=== PATIENT | female | born 1990 | race Two or more races ===

== ENCOUNTER 2023-03-24 00:44 | Inpatient (IN) | payer MEDICAID, OTHER ==
[~2023-03-24] VITALS: Ht 167.6 cm; Wt 98.0 kg
[2023-03-24] MEDS ORDERED: SODIUM CHLORIDE 0.9% 1,000 ML IV ONE (01:15)
[2023-03-24] MEDS ORDERED: cefTRIAXone 1GM/50ML D5W 50 ML IV ONE (01:15)
[2023-03-24] MEDS ORDERED: CLINDAMYCIN 600MG IV 50 ML IV ONE (01:15)
[2023-03-24 01:35] LABS: Basophils # (auto) 0.1 10 ^3/uL (0-0.2); Basophils % (auto) 0.6 % (0.0-2.0); Eosinophils # (auto) 0.4 10 ^3/uL (0-0.8); Eosinophils % (auto) 4.6 % (0.0-7.0); Hematocrit 40.3 % (36.0-46.0); Lymphocytes # (auto) 1.7 10 ^3/uL (0.4-5.4); Lymphocytes % (auto) 18.9 % (10.0-50.0); Mean Corpuscular Hgb Conc. 32.4 g/dL (32.0-36.0); Mean Corpuscular Volume 83.3 fL (80.0-100.0); Monocytes # (auto) 0.7 10 ^3/uL (0-1.3); Monocytes % (auto) 7.1 % (0.0-12.0); Neutrophils # (auto) 6.3 10 ^3/uL (1.6-8.6); Neutrophils % (auto) 68.8 % (37.0-80.0); Red Blood Cells 4.83 10^6/uL (4.0-5.20); Red Cell Distribution Width 13.4 % (11.8-14.3); White Blood Cell 9.2 10^3/uL (4.4-10.8)
[2023-03-24 01:51] LABS: Alanine Aminotransferase 12 U/L (7-40); Albumin 4.5 g/dL (3.2-4.8); Alkaline Phosphatase 90 U/L (46-116); Anion Gap 6 (5-15); Aspartate Aminotransferase 10 U/L (13-40); Bilirubin, Total 0.4 mg/dL (0.2-1.0); Calcium 8.6 mg/dL (8.7-10.4); Carbon Dioxide 25 mmol/L (20-30); Chloride 106 mmol/L (98-107); Glucose 108 mg/dL (74-106); Potassium 3.3 mmol/L (3.5-5.1); Sodium 137 mmol/L (136-145); Total Protein 7.2 g/dL (5.7-8.2)
[2023-03-24 01:57] LABS: BUN/Creatinine Ratio 7.4 (10.0-20.0); Blood Urea Nitrogen < 5 mg/dL (9-23)
[2023-03-24 02:11] LABS: INR 1.11 (0.9-1.15); Partial Thromboplastin Time 29.2 SEC (24.5-34.5); Prothrombin Time 11.6 sec (9.3-11.8)
[2023-03-24] MEDS ORDERED: ACETAMINOPHEN 325 MG TAB PO PRN (06:45)
[2023-03-24] MEDS ORDERED: ALBUTEROL SULF 2.5 MG/0.5ML(0.5%) NEB SOLN NEB PRN (06:45)
[2023-03-24] MEDS ORDERED: POTASSIUM CHL 20 Meq TABLET PO ONE (06:45)
[2023-03-24] MEDS ORDERED: TEMAZEPAM 15 MG CAP PO PRN (06:45)
[2023-03-24] MEDS ORDERED: ONDANSETRON HCL 4 MG/2 ML VIAL IV PRN (06:45)
[2023-03-24 07:00] VITALS: BP 123/73; PULSE 95; RESP 18; TEMP 99.3; O2SAT 98
[2023-03-24] MEDS: cefTRIAXone 1GM/50ML D5W 50 ML IV SCH (07:47)
[2023-03-24] MEDS: HYDROcodone-ACET 5/325MG TAB PO PRN ×3 (07:47→21:04)
[2023-03-24 07:52] VITALS: PULSE 109; RESP 18; O2SAT 98
[2023-03-24 08:55] VITALS: RESP 18; O2SAT 98
[2023-03-24] MEDS: CLINDAMYCIN 600MG IV 50 ML IV SCH ×2 (14:00→21:04)
[2023-03-24 17:00] VITALS: BP 123/81; PULSE 80; RESP 20; TEMP 97.9; O2SAT 100
[2023-03-24 20:38] VITALS: O2SAT 100
[2023-03-24 22:00] VITALS: BP 97/58; PULSE 68; RESP 18; TEMP 98.8; O2SAT 95
[2023-03-25] VITALS (8 sets, daily range): BP systolic 117–147; BP diastolic 74–93; PULSE 66–105; RESP 16–18; TEMP 97.8–98.9; O2SAT 94–100
[2023-03-25] MEDS: CLINDAMYCIN 600MG IV 50 ML IV SCH ×2 (05:48→20:33)
[2023-03-25 06:22] LABS: Basophils # (auto) 0 10 ^3/uL (0-0.2); Basophils % (auto) 0.5 % (0.0-2.0); Eosinophils # (auto) 0.5 10 ^3/uL (0-0.8); Eosinophils % (auto) 7.8 % (0.0-7.0); Hematocrit 37.4 % (36.0-46.0); Hemoglobin 12.2 g/dL (12.2-16.2); Lymphocytes % (auto) 28.6 % (10.0-50.0); Mean Corpuscular Hemoglobin 27.4 pg (28.0-32.0); Mean Corpuscular Hgb Conc. 32.6 g/dL (32.0-36.0); Mean Corpuscular Volume 84.1 fL (80.0-100.0); Monocytes # (auto) 0.7 10 ^3/uL (0-1.3); Monocytes % (auto) 9.9 % (0.0-12.0); Neutrophils # (auto) 3.7 10 ^3/uL (1.6-8.6); Neutrophils % (auto) 53.2 % (37.0-80.0); Nucleated Red Blood Cells % 0.2 %; Red Blood Cells 4.44 10^6/uL (4.0-5.20); Red Cell Distribution Width 13.6 % (11.8-14.3); White Blood Cell 6.9 10^3/uL (4.4-10.8)
[2023-03-25 06:24] LABS: Chloride 108 mmol/L (98-107)
[2023-03-25 06:25] LABS: Anion Gap 8 (5-15); Carbon Dioxide 22 mmol/L (20-30); Potassium 3.9 mmol/L (3.5-5.1); Sodium 138 mmol/L (136-145)
[2023-03-25 06:26] LABS: Calcium 8.7 mg/dL (8.5-10.1)
[2023-03-25 06:31] LABS: Glucose 86 mg/dL (74-106)
[2023-03-25 07:01] LABS: BUN/Creatinine Ratio 7.6 (10.0-20.0); Blood Urea Nitrogen < 5 mg/dL (9-23)
[2023-03-25] MEDS: cefTRIAXone 1GM/50ML D5W 50 ML IV SCH (08:55)
[2023-03-25] MEDS: HYDROcodone-ACET 5/325MG TAB PO PRN ×2 (08:55→20:33)
[2023-03-25 09:24] LABS: Urine Bacteria FEW /hpf (None Seen); Urine Blood Negative /uL (Negative); Urine Clarity Clear (Clear); Urine Color Yellow (Yellow); Urine Protein, UAD Negative (Negative); Urine Specific Gravity 1.012 (1.001-1.035); Urine Urobilinogen Normal (Negative); Urine WBC 1 /hpf (0 - 5)
[2023-03-25] MEDS: FLORASTOR (S. BOULARDII) 250 MG CAP PO SCH (11:00)
[2023-03-25] MEDS ORDERED: VANCOMYCIN PER PHARMACY 0 MG IV SCH (12:30)
[2023-03-25] MEDS ORDERED: VANCOMYCIN 1GM/200ML 200 ML IV ONE (13:00)
[2023-03-25] MEDS ORDERED: FAMOTIDINE INJECTION 40 MG in SODIUM CHL 0.9% 100 ML IV ONE (15:15)
[2023-03-25] MEDS ORDERED: diphenhdrAMINE HCL 50 MG/1 ML VL IV ONE (15:15)
[2023-03-25] MEDS ORDERED: methylPREDNISolone SOD SUCC 125 MG/2 ML VL IV ONE (15:15)
[2023-03-25] MEDS ORDERED: ACETAMINOPHEN 325 MG TAB PO ONE (15:15)
[2023-03-26] VITALS (8 sets, daily range): BP systolic 107–123; BP diastolic 63–81; PULSE 77–86; RESP 16–20; TEMP 97.7–98.3; O2SAT 95–98
[2023-03-26] MEDS ORDERED: VANCOMYCIN 1GM/200ML 200 ML IV SCH
[2023-03-26] MEDS: CLINDAMYCIN 600MG IV 50 ML IV SCH ×3 (05:13→21:10)
[2023-03-26] MEDS: FLORASTOR (S. BOULARDII) 250 MG CAP PO SCH (08:55)
[2023-03-26] MEDS: cefTRIAXone 1GM/50ML D5W 50 ML IV SCH (08:55)
[2023-03-26] MEDS: HYDROcodone-ACET 5/325MG TAB PO PRN (11:45)
[2023-03-27 05:00] VITALS: BP 122/66; PULSE 85; RESP 17; TEMP 98.3; O2SAT 94
[2023-03-27] MEDS: CLINDAMYCIN 600MG IV 50 ML IV SCH (06:01)
[2023-03-27 08:00] VITALS: PULSE 86; RESP 18; O2SAT 97
[2023-03-27 09:00] VITALS: BP 116/79; PULSE 82; RESP 20; TEMP 98; O2SAT 96
[2023-03-27] MEDS: HYDROcodone-ACET 5/325MG TAB PO PRN (09:32)
[2023-03-27] MEDS: cefTRIAXone 1GM/50ML D5W 50 ML IV SCH (09:34)
[2023-03-27] MEDS: FLORASTOR (S. BOULARDII) 250 MG CAP PO SCH (09:36)
[2023-03-27] MEDS ORDERED: CLIN300C70 PO ×2 (09:59)
[2023-03-27] MEDS ORDERED: SACC1CAP3 PO (09:59)
[2023-03-27 11:23] VITALS: BP 116/79; PULSE 98; RESP 20; TEMP 36.7; O2SAT 96
[2023-03-27 13:00] VITALS: BP 118/81; PULSE 88; RESP 21; TEMP 98; O2SAT 95
[2023-03-27] MEDS ORDERED: BACDST PO (13:25)
[2023-03-27] MEDS ORDERED: DOXYCYCLINE 100 MG TAB/CAP PO SCH (14:00)
== END 2023-03-27 14:04 | disposition home or self-care (01) | DRG 383 ==
LOC: ER 00:44 → OVERFLOW 06:40 → CENTRAL 14:43
PROVIDERS: ADMIT Nurse Practitioner; ATTEND Nurse Practitioner Acute Care
DX: L03.116 Cellulitis of left lower limb (principal); E66.9 Obesity, unspecified; E87.6 Hypokalemia; J45.909 Unspecified asthma, uncomplicated; Z86.14 Personal history of Methicillin resistant Staphylococcus aureus infection; L02.416 Cutaneous abscess of left lower limb; Z68.34 Body mass index [BMI] 34.0-34.9, adult
CPT/HCPCS: 36415; 73700; 80048; 80053; 81001; 83605; 84702; 85025; 85610; 85730; 87040; 87077; 87186; 87205; 96365; 96366; 96368; G0378; J3490

== ENCOUNTER 2023-04-11 13:23 | Emergency (ER) | payer MEDICAID ==
[~2023-04-11] VITALS: Ht 167.6 cm; Wt 88.7 kg
[~2023-04-11 13:23] MED LIST: BACDST PO; SACC1CAP3 PO
[2023-04-11] MEDS ORDERED: ACETAMINOPHEN 500 MG TAB PO ONE (14:00)
[2023-04-11] MEDS ORDERED: IPRATROPIUM BROM 0.5 MG/2.5ML INH SOL NEB ONE (14:00)
[2023-04-11] MEDS ORDERED: ALBUTEROL SULF 2.5 MG/0.5ML(0.5%) NEB SOLN NEB ONE (14:00)
[2023-04-11] MEDS ORDERED: IBUPROFEN 800 MG TAB PO ONE (16:15)
[2023-04-11] MEDS ORDERED: DexAMETHasone SOD PHOS 10MG/1ML VIAL INJ IM ONE (16:15)
[2023-04-11 17:10] LABS: COVID19 ANTIGEN SOFIA FIA NEGATIVE (NEGATIVE)
[2023-04-11 17:13] LABS: Rapid Influenza A Negative (Negative); Rapid Influenza B Negative (Negative)
[2023-04-11] MEDS ORDERED: ALBU108A5 IN (17:21)
[2023-04-11] MEDS ORDERED: METH4PAK PO (17:21)
[2023-04-11 17:33] VITALS: BP 125/73; PULSE 101; RESP 18; TEMP 99.2; O2SAT 96
== END 2023-04-11 17:34 | disposition home or self-care (01) ==
LOC: ER 13:23
DX: J45.901 Unspecified asthma with (acute) exacerbation (principal); Z20.822 Contact with and (suspected) exposure to COVID-19
CPT/HCPCS: 36415; 87426; 87804; 94640; 96372; 99283; J1100; J7644

== ENCOUNTER 2024-11-21 03:35 | Emergency (ER) | payer MEDICAID ==
[~2024-11-21] VITALS: Ht 167.6 cm; Wt 88.9 kg
[~2024-11-21 03:35] MED LIST changes: +ALBU108A5 IN; +METH4PAK PO
[2024-11-21 04:01] VITALS: BP 146/94; PULSE 89; RESP 16; TEMP 98.7; O2SAT 94
[2024-11-21] MEDS ORDERED: ERY05OO OP (04:09)
--- NOTE | 2024-11-21 04:10 | ED.PDOC ---
Eye-HPI HPI Comments 33 year old female presents to ER with right eye complaint x 1 hour. Patient reports she started experiencing redness, white drainage, blurred vision and 5/10 itchy/burning pain to right eye 1 hour prior to arrival to ER while she was around her nieces cat. States she used "OTC allergy eye drops" without relief. Patient presents to ER ambulatory on arrival, with steady gait in no distress. Denies use of contacts, headache, double vision, known foreign body going into eye or any further symptoms/complaints Chief Complaint: Eye Problem Time Seen by MD: 03:44 Primary Care Provider: UNKNOWN Reviewed Notes: Nurses Notes, Medications, Allergies Allergies: Coded Allergies: Vancomycin (Verified Allergy, Unknown, redness and itching, 03/25/23) Home Meds Active Scripts Erythromycin (Erythromycin) 5 Mg/Gm Oin, 1 MG OP 6XD for 7 Days, #1 OIN 0 Refills Prov:DIAMOND MACARIO 11/21/24 Methylprednisolone (Medrol Dosepak) 4 Mg Shane, 4 MG PO UD, #21 TAB 0 Refills UAD Prov:BRISSA IZQUIERDO SENIOR EXECUTIVE COMPENSATION ANALYST 04/11/23 Albuterol Sulfate (Albuterol Sulfate Hfa) 108 Mcg/Act Aer, 108 MCG IN Q6HP PRN for 30 Days, #1 AER 0 Refills Prov:BRISSA IZQUIERDO NP 04/11/23 Sulfamethoxazole W/Trimethopri (Bactrim Ds Tablet) 1 Tab Tb, 1 TAB PO BID for 7 Days, #14 TAB Prov:MIKA MONTOYA SENIOR EXECUTIVE COMPENSATION ANALYST 03/27/23 Yeast (S. Boulardii)(S. Cerevi (Probiotic) 250 Mg Cap, 250 MG PO DAILY for 30 Days, #30 CAP Prov:MKIA MONTOYA SENIOR EXECUTIVE COMPENSATION ANALYST 03/27/23 Information Source: Patient Mode of Arrival: Ambulatory Past Medical History PAST MEDICAL HISTORY: Asthma Surgical History: Denies all surgeries CONTENT ARCHITECT History: No Pertinent CONTENT ARCHITECT History Family History Family History: Unknown Social History Smoker: Non-Smoker Alcohol: Denies ETOH Use Drugs: Denies Drug Use Lives In: Home Constitutional: denies: chills, diaphoresis, fatigue, fever, malaise, sweats, weakness, others EENTM: reports: others (As stated in HPI) Respiratory: denies: cough, hemoptysis, orthopnea, SOB at rest, shortness of breath, SOB with excertion, stridor, wheezing, others Cardiovascular: denies: chest pain, dizzy spells, diaphoresis, Dyspnea on exertion, edema, irregular heart beat, left arm pain, lightheadedness, palpitations, PND, syncope, others Gastrointestinal: denies: abdomen distended, abdominal pain, blood streaked bowels, constipated, diarrhea, dysphagia, difficulty swallowing, hematemesis, melena, nausea, poor appetite, poor fluid intake, rectal bleeding, rectal pain, vomiting, others Genitourinary: denies: abnormal vagina bleeding, burning, dyspareunia, dysuria, flank pain, frequency, hematuria, incontinence, pain, , vagina discharge, urgency, others Neurological: denies: dizziness, fainting, headache, left sided numbness, left sided weakness, numbness, paresthesia, pre-existing deficit, right sided numbness, right sided weakness, seizure, speech problems, tingling, tremors, weakness, others Musculoskeletal: denies: back pain, gout, joint pain, joint swelling, muscle pain, muscle stiffness, neck pain, others Integumetry: denies: bruises, change in color, change in hair/nails, dryness, laceration, lesions, lumps, rash, wounds, others Allergic/Immunocompromised: denies: Difficulty Healing, Frequent Infections, Hives, Itching, others Hematologic/Lymphatic: denies: anemia, blood clots, easy bleeding, easy bruising, swollen glands, others Endocrine: denies: excessive hunger, excessive sweating, excessive thirst, excessive urination, flushing, intolerance to cold, intolerance to heat, unexplained weight gain, unexplained weight loss, others Psychiatric: denies: anxiety, bipolar disorder, depression, hopeless, panic disorder, schizophrenia, sleepless, suicidal, others Physical Exam General Appearance: No Apparent Distress, Obese HEENT: PERRL/EOMI, Pharynx Normal, TMs Normal, Other (Wood's lamp examination right eye-subconjunctival injection and minimal white drainage noted, no foreign body/corneal abrasion/corneal ulceration noted. Visual acuity right eye- 20/25, visual acuity left eye-20/20, visual acuity using both eyes- 20/20) Neck: Full Range of Motion, Non-Tender, Normal Respiratory: Chest Non-Tender, Lungs Clear, No Accessory Muscle Use, No Respiratory Distress, Normal Breath Sounds Cardiovascular: No Murmur, No Gallop, Regular Rate/Rhythm Breast Exam: Deferred Gastrointestinal: NOT DONE Genitalia: Deferred Pelvic: Deferred Rectal: Deferred Extremities: Normal capillary refill, Normal range of motion Neurologic: Alert, No Motor Deficits, Normal Affect, Normal Mood, No Sensory Deficits Cerebellar Function: Normal Reflexes: Normal Skin: Dry, Normal Color, Warm Lymphatic: No Adenopathy Was a procedure done? Was a procedure done?: No Sedation Sedation?: No EENT DIFF Eye: Corneal Abrasion, Foreign Body-Corneal, Orbital Cellulits, Periorbital Cellulits X-Ray, Labs, Meds, VS Vital Signs Date Time Temp Pulse Resp B/P (MAP) Pulse Ox O2 Delivery O2 Flow Rate FiO2 11/21/24 04:01 98.7 89 16 146/94 (111) 94 98.7 11/21/24 04:01 89 16 94 Room Air 11/21/24 03:37 98.7 89 16 146/94 94 98.7 Tetracaine ophthalmic ordered Fluorescein stain ophthalmic ordered Erythromycin ointment ordered Advised to follow up with PCP and ophthalmology in 1-2 days Patient verbalized understanding and agreeable with current plan of care Advised to return to ER immediately if symptoms worsen Time of 1ST Reevaluation: 03:44 Reevaluation 1ST: N/A Patient Education/Counseling: Diagnosis, Treatment, Prognosis, Need For Follow Up Family Education/Counseling: No Family Present SEPSIS Sepsis Screen Date sepsis recognized/suspect: Nov 21, 2024 Time Sepsis recognized/suspect: 0341 Recent Procedure: No On Antibiotic Therapy: No Respiratory Rate >20: No Heart Rate >90: No Temp<36 C (96.8 F) or >38.3 C: No SBP <90 or MAP <65 mmHG: No New Acute Mental Status Change: No Is the patient on CPAP, BIPAP,: No Vital Signs Date Time Temp Pulse Resp B/P (MAP) Pulse Ox O2 Delivery O2 Flow Rate FiO2 11/21/24 04:01 98.7 89 16 146/94 (111) 94 98.7 11/21/24 04:01 89 16 94 Room Air 11/21/24 03:37 98.7 89 16 146/94 94 98.7 Departure 1 Departure Time of Disposition: 04:08 Impression: Primary Impression: Bacterial conjunctivitis of right eye Disposition: HOME / SELF CARE / HOMELESS Condition: Stable e-Prescriptions Erythromycin (Erythromycin) 5 Mg/Gm Oin 1 MG OP 6XD for 7 Days, #1 OIN 0 Refills Prov: DIAMOND MACARIO 11/21/24 Discharged With: Friend Critical Care Note Critical Care Time?: No Stability Stability form required: No Heart Score Heart Score: Heart Score Response (Comments) Value History N/A 0 EKG N/A 0 Age N/A 0 Risk Factors N/A 0 Troponin N/A 0 Total 0 DIAMOND MACARIO Nov 21, 2024 04:10
[2024-11-21] MEDS: TETRACAINE HCL 0.5% OPTH(EYE) SOLN 4ML RIGHTEYE ONE (04:24)
[2024-11-21] MEDS: ERYTHROMY OPTH OINT 5mg/gm 1gm or 3.5gm tube OP ONE (04:24)
[2024-11-21] MEDS: FLUORESCEIN SOD OPTH TEST STRIP RIGHTEYE ONE (04:24)
== END 2024-11-21 04:28 | disposition home or self-care (01) ==
LOC: ER 03:35
DX: H10.89 Other conjunctivitis (principal); H57.11 Ocular pain, right eye; J45.909 Unspecified asthma, uncomplicated; Z79.899 Other long term (current) drug therapy; Z88.1 Allergy status to other antibiotic agents

== ENCOUNTER 2024-12-14 21:29 | Emergency (ER) | payer MEDICAID ==
[~2024-12-14] VITALS: Ht 167.6 cm; Wt 88.3 kg
[~2024-12-14 21:29] MED LIST changes: +ERY05OO OP
[2024-12-14 23:22] VITALS: BP 125/77; PULSE 88; RESP 18; TEMP 98.9; O2SAT 95
--- NOTE | 2024-12-14 23:28 | ED.PDOC ---
Eye-HPI HPI Comments Pt presents with right side tooth pain x2 days. Pt says she broke right side tooth on bottom near back of mouth. Pt says pain got worse today with swelling. Rates pain 11/04, has taken tylenol for pain without relief. Has not seen dentist yet. Denies fevers, n/v, swallowing throat swelling or difficulty breathing. Chief Complaint: Tooth Pain Time Seen by MD: 21:33 Primary Care Provider: UNKNOWN Reviewed Notes: Nurses Notes, Medications, Allergies Allergies: Coded Allergies: Vancomycin (Verified Allergy, Unknown, redness and itching, 03/25/23) Home Meds Active Scripts Ibuprofen (Ibuprofen) 800 Mg Tab, 800 MG PO Q8HP PRN for 5 Days, #15 TAB Prov:BAKARI CAMACHO 12/14/24 Clindamycin Hcl (Clindamycin Hcl) 300 Mg Cap, 300 MG PO QID, #7 CAP 28 Refills Prov:BAKARI CAMACHO 12/14/24 Erythromycin (Erythromycin) 5 Mg/Gm Oin, 1 MG OP 6XD for 7 Days, #1 OIN 0 Refills Prov:DIAMOND MACARIO 11/21/24 Methylprednisolone (Medrol Dosepak) 4 Mg Shane, 4 MG PO UD, #21 TAB 0 Refills UAD Prov:BRISSA IZQUIERDO FOOD AND BEVERAGE CASHIER 04/11/23 Albuterol Sulfate (Albuterol Sulfate Hfa) 108 Mcg/Act Aer, 108 MCG IN Q6HP PRN for 30 Days, #1 AER 0 Refills Prov:BRISSA IZQUIERDO NP 04/11/23 Sulfamethoxazole W/Trimethopri (Bactrim Ds Tablet) 1 Tab Tb, 1 TAB PO BID for 7 Days, #14 TAB Prov:MIKA MONTOYA FOOD AND BEVERAGE CASHIER 03/27/23 Yeast (S. Boulardii)(S. Cerevi (Probiotic) 250 Mg Cap, 250 MG PO DAILY for 30 Days, #30 CAP Prov:MIKA MONTOYA FOOD AND BEVERAGE CASHIER 03/27/23 Information Source: Patient Mode of Arrival: Ambulatory Past Medical History PAST MEDICAL HISTORY: Asthma Surgical History: Denies all surgeries JAIL GUARD History: No Pertinent JAIL GUARD History Family History Family History: Unknown Social History Smoker: Non-Smoker Alcohol: Denies ETOH Use Drugs: Denies Drug Use Lives In: Home All Other Systems: Reviewed and Negative (see hpi) Physical Exam General Appearance: No Apparent Distress, Normal HEENT: Pharynx Normal, TMs Normal Neck: Full Range of Motion, Non-Tender, Normal, Normal Inspection Respiratory: Chest Non-Tender, Lungs Clear, No Accessory Muscle Use, No Respiratory Distress, Normal Breath Sounds Cardiovascular: No Edema, No JVD, No Murmur, No Gallop, Normal Peripheral Pulses, Regular Rate/Rhythm Breast Exam: Deferred Gastrointestinal: No Organomegaly, Non Tender, No Pulsatile Mass, Normal Bowel Sounds, Soft Genitalia: Deferred Pelvic: Deferred Rectal: Deferred Extremities: No calf tenderness, Normal capillary refill, Normal inspection, Normal range of motion, Non-tender, No pedal edema Musculoskeletal : Apperance: Normal Neurologic: Alert, patient service coordinator II-XII nml as Tested, No Motor Deficits, Normal Affect, Normal Mood, No Sensory Deficits Cerebellar Function: Normal Reflexes: Normal Skin: Dry, Normal Color, Warm Lymphatic: No Adenopathy Was a procedure done? Was a procedure done?: No EENT DIFF Eye: N/A Sore Throat: Bryan's Angina, Peritonsillar Abscess, Peritonsillar Cellulitis, Pharyngitis X-Ray, Labs, Meds, VS Vital Signs Date Time Temp Pulse Resp B/P (MAP) Pulse Ox O2 Delivery O2 Flow Rate FiO2 12/14/24 23:22 88 18 95 Room Air 12/14/24 23:22 98.9 88 18 125/77 (93) 95 98.9 12/14/24 21:30 98.2 86 18 139/94 95 98.2 Current Medications Medications (Trade) Dose Ordered Sig/Shar Route Start Time Stop Time Status Last Admin Ketorolac Tromethamine (Toradol Injection) 60 mg ONCE ONCE IM 12/14/24 23:30 12/14/24 23:31 DC 12/14/24 23:30 Acetaminophen/ Hydrocodone Bitart ([place] 10/325MG Tab) 1 tab ONCE ONCE PO 12/14/24 23:30 12/14/24 23:31 DC 12/14/24 23:30 Ceftriaxone Sodium (Rocephin) 1,000 mg ONCE ONCE IM 12/14/24 23:30 12/14/24 23:31 DC 12/14/24 23:30 X-Ray, Labs, Meds, VS Comment Patient reports improvement in symptoms requesting discharge at this time script trial of antibiotics and anti-inflammatory. Advised to follow up with dental for resolution. Advised to take medication as prescribed side effects discussed. ER return precautions given patient indicates understanding and agrees with discharge plan of care. Time of 1ST Reevaluation: 21:23 Reevaluation 1ST: Unchanged Time of 2ND Reevaluation: 23:24 Reevaluation 2ND: Improved Patient Education/Counseling: Diagnosis, Treatment, Prognosis, Need For Follow Up Family Education/Counseling: Diagnosis, Treatment, Need For Follow Up SEPSIS Sepsis Screen Date sepsis recognized/suspect: Dec 14, 2024 Time Sepsis recognized/suspect: 2132 Recent Procedure: No On Antibiotic Therapy: No Respiratory Rate >20: No Heart Rate >90: No Temp<36 C (96.8 F) or >38.3 C: No SBP <90 or MAP <65 mmHG: No New Acute Mental Status Change: No Is the patient on CPAP, BIPAP,: No Vital Signs Date Time Temp Pulse Resp B/P (MAP) Pulse Ox O2 Delivery O2 Flow Rate FiO2 12/14/24 23:22 88 18 95 Room Air 12/14/24 23:22 98.9 88 18 125/77 (93) 95 98.9 12/14/24 21:30 98.2 86 18 139/94 95 98.2 Medications Medications Dose Ordered Sig/Shar Route Start Time Stop Time Status Last Admin Dose Admin Acetaminophen/ Hydrocodone Bitart 1 tab ONCE ONCE PO 12/14/24 23:30 12/14/24 23:31 DC 12/14/24 23:30 Ceftriaxone Sodium 1,000 mg ONCE ONCE IM 12/14/24 23:30 12/14/24 23:31 DC 12/14/24 23:30 Ketorolac Tromethamine 60 mg ONCE ONCE IM 12/14/24 23:30 12/14/24 23:31 DC 12/14/24 23:30 Lidocaine HCl 20 ml STK-MED ONCE .ROUTE 12/14/24 23:42 12/14/24 23:38 DC 12/14/24 23:42 Departure 1 Departure Time of Disposition: 23:28 Impression: Primary Impression: Infected dental caries Disposition: 01 HOME / SELF CARE / HOMELESS Condition: Stable e-Prescriptions Ibuprofen (Ibuprofen) 800 Mg Tab 800 MG PO Q8HP PRN for 5 Days, #15 TAB Prov: BAKARI CAMACHO 12/14/24 Clindamycin Hcl (Clindamycin Hcl) 300 Mg Cap 300 MG PO QID, #7 CAP 28 Refills Prov: BAKARI CAMACHO 12/14/24 Discharged With: Significant Other Critical Care Note Critical Care Time?: No Stability Stability form required: BAKARI Hassan Dec 14, 2024 23:28
[2024-12-14] MEDS: KETOROLAC TROMETH 60MG/2ML VIAL IM ONE (23:30)
[2024-12-14] MEDS: HYDROcodone-ACET 10/325MG TAB PO ONE (23:30)
[2024-12-14] MEDS: cefTRIAXone SOD 1,000 MG VL IM ONE (23:30)
[2024-12-14] MEDS ORDERED: CLIN1CAP70 PO (23:30)
[2024-12-14] MEDS ORDERED: IBUP-1456 PO (23:30)
[2024-12-14] MEDS: LIDOCAINE 1% HCL (LOCAL ANESTH.) INJ 20ML MDV ONE (23:42)
== END 2024-12-14 23:31 | disposition home or self-care (01) ==
LOC: ER 21:29
DX: K02.9 Dental caries, unspecified (principal); J45.909 Unspecified asthma, uncomplicated; K04.7 Periapical abscess without sinus; Z88.1 Allergy status to other antibiotic agents; Z79.899 Other long term (current) drug therapy
CPT/HCPCS: 96372; 99284; J0696; J1885; J2003

== ENCOUNTER 2025-02-28 15:40 | Emergency (ER) | payer MEDICAID ==
[~2025-02-28] VITALS: Ht 167.6 cm; Wt 86.8 kg
[~2025-02-28 15:40] MED LIST changes: +CLIN1CAP70 PO
[2025-02-28 16:12] VITALS: BP 146/90; PULSE 93; RESP 16; TEMP 98.6; O2SAT 97
--- NOTE | 2025-02-28 16:21 | ED.PDOC ---
History of Present Illness(SKN HPI Comments A 34 YEAR OLD FEMALE PRESENTS TO THE ED WITH COMPLAINT OF CAT BITE AND SCRATCHES OF LEFT HAND AND WRIST. PATIENT STATES SHE WAS BITTEN AND SCRATCHED ON HER LEFT HAND AND LEFT WRIST EARLIER TODAY. BLEEDING IS CONTROLLED AT THIS TIME. PATIENT DENIES FEVER, CHILLS, SHORTNESS OF BREATH, CHEST PAIN, ABDOMINAL PAIN, NAUSEA, VOMITING, HEADACHE, OR OTHER COMPLAINTS. NO OTHER SYMPTOMS OR MODIFYING FACTORS AT THIS TIME. PATIENT IS ALERT, ORIENTED X 4, AND HAS STEADY GAIT. Chief Complaint: Animal Bite Time Seen by MD: 15:48 Primary Care Provider: UNKNOWN History of Present Illness: Nurses Notes, Medications, Allergies Allergies: Coded Allergies: Vancomycin (Verified Allergy, Unknown, redness and itching, 03/25/23) Home Meds Active Scripts Naproxen (Naproxen) 500 Mg Tab, 500 MG PO BID, #30 TAB Prov:DEB JOLLY 02/28/25 Amoxicillin & Pot Clavulanate (AUGMENTIN TABLET) 875 Mg Tb, 875 MG PO BID, #20 TAB Prov:DEB JOLLY 02/28/25 Clindamycin Hcl (Clindamycin Hcl) 300 Mg Cap, 300 MG PO QID, #7 CAP 28 Refills Prov:BAKARI CAMACHO 12/14/24 Erythromycin (Erythromycin) 5 Mg/Gm Oin, 1 MG OP 6XD for 7 Days, #1 OIN 0 R efills Prov:DIAMOND MACARIO 11/21/24 Methylprednisolone (Medrol Dosepak) 4 Mg Shane, 4 MG PO UD, #21 TAB 0 Refills UAD Prov:BRISSA IZQUIERDO NP 04/11/23 Albuterol Sulfate (Albuterol Sulfate Hfa) 108 Mcg/Act Aer, 108 MCG IN Q6HP PRN for 30 Days, #1 AER 0 Refills Prov:BRISSA IZQUIERDO NP 04/11/23 Sulfamethoxazole W/Trimethopri (Bactrim Ds Tablet) 1 Tab Tb, 1 TAB PO BID for 7 Days, #14 TAB Prov:MIKA MONTOYA NP 03/27/23 Yeast (S. Boulardii)(S. Cerevi (Probiotic) 250 Mg Cap, 250 MG PO DAILY for 30 Days, #30 CAP Prov:MIKA MONTOYA ANIMAL RIDE ATTENDANT 03/27/23 Information Source: Patient Mode of Arrival: Ambulatory Severity: Mild Timing: Hours Duration: Since onset, Hours Prehospital treatment: None Location: Hand (LEFT HAND), Other (LEFT WRIST) Mechanism: Cat Occurence: Indoors Object: None Condition of Object: None Retained Foreign Body: No Wound Type: Puncture Immunization Status of Animal: NA Tetanus: Unknown History of: None Associated Signs and Symptoms: Redness, Swelling, Pain Past Medical History PAST MEDICAL HISTORY: Asthma Surgical History: Denies all surgeries SUPERVISOR SEAMING History: No Pertinent SUPERVISOR SEAMING History Family History Family History: Reviewed,noncontributory to illness Social History Smoker: Non-Smoker Alcohol: Denies ETOH Use Drugs: Denies Drug Use Lives In: Home Constitutional: denies: chills, diaphoresis, fatigue, fever, malaise, sweats, weakness, others EENTM: denies: blurred vision, double vision, ear bleeding, ear discharge, ear drainage, ear pain, ear ringing, eye pain, eye redness, hearing loss, mouth pain, mouth swelling, nasal discharge, nose bleeding, nose congestion, nose pain, photophobia, tearing, throat pain, throat swelling, voice changes, others Respiratory: denies: cough, hemoptysis, orthopnea, SOB at rest, shortness of breath, SOB with excertion, stridor, wheezing, others Cardiovascular: denies: chest pain, dizzy spells, diaphoresis, Dyspnea on exertion, edema, irregular heart beat, left arm pain, lightheadedness, palpitations, PND, syncope, others Gastrointestinal: denies: abdomen distended, abdominal pain, blood streaked bowels, constipated, diarrhea, dysphagia, difficulty swallowing, hematemesis, melena, nausea, poor appetite, poor fluid intake, rectal bleeding, rectal pain, vomiting, others Genitourinary: denies: abnormal vagina bleeding, burning, dyspareunia, dysuria, flank pain, frequency, hematuria, incontinence, pain, , vagina d ischarge, urgency, others Neurological: denies: dizziness, fainting, headache, left sided numbness, left sided weakness, numbness, paresthesia, pre-existing deficit, right sided numbness, right sided weakness, seizure, speech problems, tingling, tremors, weakness, others Musculoskeletal: denies: back pain, gout, joint pain, joint swelling, muscle pain, muscle stiffness, neck pain, others Integumetry: reports: wounds, others (CAT BITE/SCRATCHES OF LEFT HAND AND LEFT WRIST); denies: bruises, change in color, change in hair/nails, dryness, laceration, lesions, lumps, rash Allergic/Immunocompromised: denies: Difficulty Healing, Frequent Infections, Hives, Itching, others Hematologic/Lymphatic: denies: anemia, blood clots, easy bleeding, easy bruising, swollen glands, others Endocrine: denies: excessive hunger, excessive sweating, excessive thirst, excessive urination, flushing, intolerance to cold, intolerance to heat, unexplained weight gain, unexplained weight loss, others Psychiatric: denies: anxiety, bipolar disorder, depression, hopeless, panic disorder, schizophrenia, sleepless, suicidal, others All Other Systems: Reviewed and Negative Physical Exam General Appearance: No Apparent Distress, Normal HEENT: Normal ENT Inspection, PERRL/EOMI, Pharynx Normal, TMs Normal Neck: Full Range of Motion, Non-Tender, Normal, Normal Inspection Respiratory: Chest Non-Tender, Lungs Clear, No Accessory Muscle Use, No Respiratory Distress, Normal Breath Sounds Cardiovascular: No Edema, No JVD, No Murmur, No Gallop, Normal Peripheral Pulses, Regular Rate/Rhythm Breast Exam: Deferred Gastrointestinal: No Organomegaly, Non Tender, No Pulsatile Mass, Normal Bowel Sounds, Soft Genitalia: Deferred Pelvic: Deferred Rectal: Deferred Extremities: No calf tenderness, Normal capillary refill, Normal range of motion, No pedal edema, Tender (WITH A FEW SCRATCHES AND PUNCTURE WOUNDS ON LEFT LATERAL WRIST AND [place], NO BLEEDING AND FB. NORMAL ROM. ) Musculoskeletal : Apperance: Normal Neurologic: Alert, hand hide stretcher II-XII nml as Tested, No Motor Deficits, Normal Affect, Normal Mood, No Sensory Deficits Cerebellar Function: Normal Reflexes: Normal Skin: Dry, Normal Color, Warm, Wounds (SCRATCH AND PUNCTURE WOUND ON LEFT LAT ERAL WRIST AND [place], MILD REDNESS AND SWELLING, NO PUS DRAINAGE. ) Peripheral Pulses: 2+ carotid (R), 2+ carotid (L), 2+ Radial (R), 2+ Radial (L) Lymphatic: No Adenopathy Was a procedure done? Was a procedure done?: No Differential Diagnosis (INTG) Differential Diagnosis: Abrasion, Contusion, Laceration, Puncture Wound Differential Diagnosis: N/A Differential Diagnosis: N/A Abscess: N/A Differential Diagnosis: N/A X-Ray, Labs, Meds, VS Vital Signs Date Time Temp Pulse Resp B/P (MAP) Pulse Ox O2 Delivery O2 Flow Rate FiO2 02/28/25 16:12 93 16 97 Room Air 02/28/25 16:12 98.6 93 16 146/90 (108) 97 98.6 02/28/25 15:42 97.6 93 16 146/90 97 97.6 X-Ray, Labs, Meds, VS Comment EXTERNAL MEDICAL RECORDS REVIEWED: [NONE] INDEPENDENT HISTORIANS: [NONE] SOCIAL DETERMINANTS OF HEALTH: [NONE] LABS ORDERED: NONE REVIEWED AND INTERPRETED RESULTS: NONE IMAGING ORDERED: NONE TREATMENTS ORDERED: THE PATIENT'S LEFT HAND AND LEFT WRIST WERE CLEANED WITH NORMAL SALINE AND ALCOHOL SWABS. PROCEDURES PERFORMED: NONE CRITICAL CARE TIME: NONE I HAVE DISCUSSED THE PATIENT WITH THE ATTENDING PHYSICIAN DR. OCAMPO AND HE AGREES WITH THE PATIENT'S PLAN OF CARE AND DISPOSITION. BASED ON HISTORY OF PRESENT ILLNESS, AND PHYSICAL EXAM, PATIENT WILL BE DISCHARGED HOME. DISCUSSED PLAN FOR DISCHARGE HOME WITH RX [AUGMENTIN]. MEDICATION WARNINGS GIVEN. SHARED DECISION MAKING: PATIENT INSTRUCTED TO FOLLOW UP WITH PRIMARY CARE PROVIDER IN 1-2 DAYS FOR RE-EVALUATION OF SYMPTOMS. PATIENT VERBALIZES UNDERSTANDING TO RETURN TO ED FOR NEW OR WORSENING SYMPTOMS OR IF FOLLOW UP WITH PCP CANNOT BE OBTAINED. PATIENT FEELS COMFORTABLE GOING HOME AT THIS TIME. ALL QUESTIONS ADDRESSED AT TIME OF DISCHARGE. Time of 1ST Reevaluation: 16:36 Reevaluation 1ST: Improved Patient Education/Counseling: Diagnosis, Treatment, Need For Follow Up Family Education/Counseling: Diagnosis, Treatment, Need For Follow Up Medical Screening: No EMC Exist At This Time SEPSIS Sepsis Screen Date sepsis recognized/suspect: Feb 28, 2025 Time Sepsis recognized/suspect: 1544 Recent Procedure: No On Antibiotic Therapy: No Respiratory Rate >20: No Heart Rate >90: Yes Temp<36 C (96.8 F) or >38.3 C: No SBP <90 or MAP <65 mmHG: No New Acute Mental Status Change: No Is the patient on CPAP, BIPAP,: No Vital Signs Date Time Temp Pulse Resp B/P (MAP) Pulse Ox O2 Delivery O2 Flow Rate FiO2 02/28/25 16:12 93 16 97 Room Air 02/28/25 16:12 98.6 93 16 146/90 (108) 97 98.6 02/28/25 15:42 97.6 93 16 146/90 97 97.6 Departure 1 Departure Time of Disposition: 16:36 Impression: Primary Impression: Puncture wound of left hand Qualified Codes: S61.432A - Puncture wound without foreign body of left hand, initial encounter Additional Impressions: Puncture wound of left wrist Qualified Codes: S61.532A - Puncture wound without foreign body of left wrist, initial encounter Cat bite Qualified Codes: W55.01XA - Bitten by cat, initial encounter Disposition: HOME / SELF CARE / HOMELESS Condition: Stable Additional Instructions: FOLLOW-UP WITH PCP IN 1 TO 2 DAYS. TAKE MEDICATIONS PRESCRIBED. RETURN TO ED FOR ANY NEW OR WORSENING SYMPTOMS. e-Prescriptions Naproxen (Naproxen) 500 Mg Tab 500 MG PO BID, #30 TAB Prov: DEB JOLLY 02/28/25 Amoxicillin & Pot Clavulanate (AUGMENTIN TABLET) 875 Mg Tb 875 MG PO BID, #20 TAB Prov: DEB JOLLY 02/28/25 Discharged With: Self Critical Care Note Critical Care Time?: No Stability Stability form required: No I personally scribed for DEB JOLLY ([email or web address]) on 02/28/25 at 16:21. Electronically submitted by Lorenzo Olson ([email or web address]). DEB JOLLY Feb 28, 2025 16:21
[2025-02-28] MEDS ORDERED: AUG875T PO (16:31)
[2025-02-28] MEDS ORDERED: NAPR-746 PO (16:31)
== END 2025-02-28 16:40 | disposition home or self-care (01) ==
LOC: ER 15:40
DX: S61.452A Open bite of left hand, initial encounter (principal); S61.552A Open bite of left wrist, initial encounter; J45.909 Unspecified asthma, uncomplicated; Z88.1 Allergy status to other antibiotic agents; W55.01XA Bitten by cat, initial encounter; Y93.89 Activity, other specified; Y92.89 Other specified places as the place of occurrence of the external cause; Y99.8 Other external cause status